=== PATIENT | male | born 1965 ===

== ENCOUNTER → 2019-05-05 | Outpatient (REF) ==
--- NOTE | 2019-05-05 21:34 | REP ---
Clinical: Pain. Technique: AP, lateral, bilateral oblique views of the left ankle. Findings: No acute fracture dislocation. Cortical irregularity at the medial malleolus may reflect prior injury. Ankle mortise intact. Impression: Generalized age-related changes. No obvious acute fracture or dislocation. Electronically Signed by Forrest Jesus MD 05/05/2019 09:26 P
== END ==
LOC: M SMT 14:01
PROVIDERS: ATTEND Internal Medicine
DX: Z02.71 Encounter for disability determination (principal)